=== PATIENT | female | born 1980 | race Caucasian/White ===

== ENCOUNTER → 2017-12-09 | Outpatient (CLI) | payer OTHER | LOC: COL.RAD 06:09 | DX: R10.11 Right upper quadrant pain (principal) | CPT/HCPCS: A9537; J2805 ==

== ENCOUNTER 2018-04-15 07:51 | Day surgery (SDC) | payer OTHER ==
[~2018-04-15] VITALS: Ht 162.6 cm; Wt 73.7 kg
[2018-04-15] MEDS ORDERED: CYMBALTA 60MG60 MG PO (08:22)
[2018-04-15] MEDS ORDERED: GLUCOPHAGE500 MG/TAB PO ×2 (08:22)
[2018-04-15] MEDS ORDERED: LIORESAL 1010 MG/TAB PO (08:23)
[2018-04-15] MEDS ORDERED: PRILOSEC 20MG20 MG PO ×2 (08:23→09:57)
[2018-04-15] MEDS ORDERED: ALDACTONE50 MG PO (08:24)
[2018-04-15] MEDS ORDERED: LUNESTA3 MG PO (08:25)
[2018-04-15] MEDS ORDERED: MEXITIL 150MG150 MG PO (08:25)
[2018-04-15] MEDS ORDERED: VTAMINC250TA PO (08:26)
[2018-04-15] MEDS ORDERED: NATURAL IRON65 MG PO (08:26)
[2018-04-15] MEDS ORDERED: TYLENOL 325MG325 MG PO (08:26)
[2018-04-15] MEDS ORDERED: NIFEDIPINE TOP (08:28)
[2018-04-15] MEDS ORDERED: LIDOCAINE TOP (08:28)
[2018-04-15 08:30] VITALS: BP 115/83; PULSE 85; TEMP 98.4
[2018-04-15 10:00] VITALS: BP 99/70; PULSE 95; TEMP 98.2
[2018-04-15 10:15] VITALS: BP 102/77; PULSE 94
[2018-04-15 10:30] VITALS: BP 112/80; PULSE 88
== END 2018-04-15 10:45 | disposition home or self-care (01) ==
LOC: SDCO 07:51
DX: K64.0 First degree hemorrhoids (principal); K62.89 Other specified diseases of anus and rectum; K60.1 Chronic anal fissure; K59.00 Constipation, unspecified; D50.9 Iron deficiency anemia, unspecified; K92.1 Melena; K21.9 Gastro-esophageal reflux disease without esophagitis; E78.00 Pure hypercholesterolemia, unspecified; K58.0 Irritable bowel syndrome with diarrhea; E11.9 Type 2 diabetes mellitus without complications; F17.210 Nicotine dependence, cigarettes, uncomplicated; Z88.0 Allergy status to penicillin; Z88.1 Allergy status to other antibiotic agents; Z88.6 Allergy status to analgesic agent; Z80.0 Family history of malignant neoplasm of digestive organs; Z83.71 Family history of colonic polyps
CPT/HCPCS: J2250; J2405; J3010; J7030